=== PATIENT | male | born 1950 | race Caucasian/White ===

== ENCOUNTER 2019-05-14 15:18 | Outpatient (CLI) | payer OTHER ==
--- NOTE | 2019-05-14 16:47 | RAD ---
KUB: HISTORY: Renal calculus COMPARISON: 11/08/2003 FINDINGS: There is a 5 to 6 mm calcific density in the projection of the inferior pole of the right kidney, loree picious for a renal calculus. The bowel gas pattern is unremarkable. There is an angular compression screw in the right proximal fe mur.
[2019-05-14 17:13] LABS: PTT 31.3 SEC (22.9-36.1); Prothrombin Time 13.4 SEC (12.0-14.7)
[2019-05-14 17:27] LABS: EPI 145 SEC (67-199); Platelet Count 204 thou/uL (130-400)
== END 2019-05-14 15:19 | disposition home or self-care (01) ==
LOC: LABBT 15:18
PROVIDERS: ATTEND Urology
DX: Z01.818 Encounter for other preprocedural examination (principal); N20.0 Calculus of kidney; N28.89 Other specified disorders of kidney and ureter
CPT/HCPCS: 74018; 84153; 84154; 85576; 85610; 85730

== ENCOUNTER 2019-05-16 05:50 | Day surgery (SDC) | payer OTHER ==
[2019-05-14 15:57] VITALS: BMI 27.1
[2019-05-16] MEDS ORDERED: Iothalamate Meglumine 60% 50 ML VIAL FS ONE (06:47)
[2019-05-16] MEDS ORDERED: Fentanyl 100 MCG/2 ML VIAL ONE ×2 (06:50→09:02)
--- NOTE | 2019-05-16 12:57 | OP ---
DATE OF PROCEDURE: 05/16/2019 PREOPERATIVE DIAGNOSIS: Right renal stone. POSTOPERATIVE DIAGNOSIS: Right renal stone. PROCEDURE PERFORMED: Right extracorporeal shockwave lithotripsy. ANESTHETIC: General. ESTIMATED BLOOD LOSS: Not recorded. FINDINGS: There was a 6 x 7 mm right renal stone that was treated with 1900 shocks at level 4 with good fragmentation. No stent was placed. DESCRIPTION OF PROCEDURE: Obtained written and verbal consent from the patient after documenting normal preoperative blood work, including platelet function assays, being sure we could see his stone on his preop KUB. He was taken to the operating suite. He was placed in the supine position on the treatment table. PlexiPulses were placed on his lower extremities and turned on. He was given a general anesthetic and oral obturator intubation. He was coupled to the lithotripsy unit. The stone was placed in treatment focal point. Shockwave was commenced at a rate of 60 at a very low kV. After 200 shocks, a 3-minute pause was given and was then restarted and brought up to level 4. We kept him at a rate of 60. Fluoroscopy was used intermittently to document stone fragmentation as well as to reposition as necessary. By 1900 shocks, we saw no further stone fragments of any size remaining, and the procedure was halted. He was awakened, extubated, and taken by tala to recovery room. Job ID: [id number]
[2019-05-16] MEDS ORDERED: Dexamethasone 20 MG/5 ML VIAL ONE (14:54)
[2019-05-16] MEDS ORDERED: Lidocaine 1% PF 5 ML VIAL ONE (14:54)
[2019-05-16] MEDS ORDERED: Ondansetron PF 4 MG/2 ML Vial ONE (14:54)
[2019-05-16] MEDS ORDERED: PROPOFOL 200 MG/20 ML VIAL ONE (14:54)
== END 2019-05-16 10:25 | disposition home or self-care (01) ==
LOC: SDC 05:50 → EEVIPCON 15:00
PROVIDERS: ATTEND Urology
PROC: 0TF3XZZ Fragmentation in Right Kidney Pelvis, External Approach (ICD-10-PCS; principal; 2019-05-16)
DX: N20.0 Calculus of kidney (principal); Z79.899 Other long term (current) drug therapy; Z88.7 Allergy status to serum and vaccine
CPT/HCPCS: J1100; J2001; J2405; J2704; J3010; Q9961